=== PATIENT | female | born 1965 | race Caucasian/White ===

== ENCOUNTER 2024-04-13 23:38 | Inpatient (IN) | payer MEDICARE, OTHER ==
[~2024-04-13] VITALS: Ht 162.6 cm; Wt 69.9 kg
[2024-04-14] MEDS ORDERED: ACETAMINOPHEN 650 MG/SUPP.RECT RC ONE (00:18)
[2024-04-14 00:26] LABS: BASOPHILS % (AUTO) 0.1 % (0.0-2.0); EOSINOPHILS # (AUTO) 0.1 K/uL (0.0-0.7); EOSINOPHILS % (AUTO) 0.7 % (0.0-6.0); HEMATOCRIT 24 % (33-45); HEMOGLOBIN 8.1 g/dL (11.5-14.8); LYMPHOCYTES # (AUTO) 1.1 K/uL (0.8-4.8); LYMPHOCYTES % (AUTO) 10.9 % (20.0-44.0); MEAN CORPUSCULAR HEMOGLOBIN 29 PG (26.0-33.0); MEAN CORPUSCULAR HGB CONC 33 g/dl (31.0-36.0); MEAN CORPUSCULAR VOLUME 87 fL (82-100); MONOCYTES # (AUTO) 0.7 K/uL (0.1-1.30); MONOCYTES % (AUTO) 6.8 % (2.0-12.0); NEUTROPHILS # (AUTO) 8.2 K/uL (1.8-8.9); NEUTROPHILS % (AUTO) 81.5 % (43.0-81.0); PLATELET COUNT (AUTO) 158 K/uL (150-450); RED CELL DISTRIBUTION WIDTH 14.3 % (11.5-15.0); WHITE BLOOD COUNT (AUTO) 10.1 K/uL (4.3-11.0)
[2024-04-14] MEDS: PIPERACILLIN /TAZOBACTAM 3.375 G in IV D5W 50 ML IV ONE (00:30)
[2024-04-14] MEDS ORDERED: PIPERACI/TAZO 3.375GM/D5W 50ML PB IV ONE (00:34)
[2024-04-14] MEDS ORDERED: VANCOMYCIN 1 GM /D5W 250 ML PB IV ONE (00:34)
[2024-04-14] MEDS: IV NS 0.9% 1,000 ML BAG IV ONE (00:45)
[2024-04-14] MEDS: ACETAMINOPHEN 650 MG/SUPP.RECT RC ONE (00:45)
[2024-04-14 00:49] LABS: LACTIC ACID 1.9 mmol/L (0.4-2.0)
[2024-04-14 00:50] LABS: INR 1.07 (0.91-1.10); PARTIAL THROMBOPLASTIN TIME 27.4 SEC (24.3-34.3); PROTHROMBIN TIME 11.3 SECS (9.2-11.1)
[2024-04-14 00:52] LABS: CALCIUM, SERUM 7.6 mg/dL (8.5-10.1); CREATININE 1.4 mg/dL (0.6-1.3); POTASSIUM 4.5 mmol/L (3.5-5.1)
[2024-04-14 00:58] LABS: ADD URINE CULTURE YES; APPEARANCE,URINE CLOUDY (CLEAR); BACTERIA,URINE Moderate /HPF (None Seen); BILIRUBIN,URINE NEGATIVE (NEGATIVE); BLOOD, URINE TRACE-INTA Ery/uL (NEGATIVE); COLOR,URINE YELLOW (YELLOW); KETONES,URINE NEGATIVE (NEGATIVE); LEUKOCYTE ESTERASE ,URINE 1+ (NEGATIVE); NITRITE, URINE NEGATIVE (NEGATIVE); PH,URINE 5.5 (5.0-8.0); PROTEIN,URINE NEGATIVE (NEGATIVE); UGLUCOSE NEGATIVE (NEGATIVE); UROBILINOGEN,URINE 0.2 EU/dL (0.2); WBC,URINE 21-50 /HPF (0-3)
[2024-04-14 00:58] LABS: BILIRUBIN,DIRECT 0.2 mg/dL (0.0-0.2); BILIRUBIN,TOTAL 0.4 mg/dL (0.2-1.0); TOTAL PROTEIN, SERUM 6.1 g/dL (6.4-8.2)
[2024-04-14 00:59] LABS: SQUAMOUS EPITHELIAL CELL,UR Few /HPF (None Seen)
[2024-04-14] MEDS: VANCOMYCIN 1 GM in IV D5W 250 ML IV ONE (01:18)
[2024-04-14] MEDS ORDERED: HYDROMORPHONE 1 MG/1 ML DISP.SYRIN ONE (01:28)
[2024-04-14] MEDS ORDERED: KETOROLAC TROMETHAMINE INJ 30 MG/ML VIAL ONE (01:28)
[2024-04-14] MEDS: HYDROMORPHONE 1 MG/1 ML DISP.SYRIN IV ONE (01:30)
[2024-04-14] MEDS: KETOROLAC TROMETHAMINE INJ 30 MG/ML VIAL IV ONE (01:32)
[2024-04-14] MEDS ORDERED: ALBUTEROL FS 2.5 MG/0.5 ML VIAL.NEB NEB PRN (02:00)
[2024-04-14] MEDS ORDERED: hydrALAZINE HCL IV 20 MG VIAL IV PRN (02:00)
[2024-04-14] MEDS ORDERED: ONDANSETRON HCL/PF 4 MG/2 ML VIAL IVP PRN (02:00)
[2024-04-14] MEDS ORDERED: MORPHINE SULFATE INJ 2 MG/ML DISP.SYRIN IV PRN (02:00)
[2024-04-14] MEDS: IV NS 0.9% 1,000 ML IV SCH (03:00)
[2024-04-14] MEDS: ALBUTEROL FS 2.5 MG/0.5 ML VIAL.NEB IH SCH (07:35)
[2024-04-14] MEDS ORDERED: CEFEPIME 2 GM in IV D5W 100 ML IV SCH (08:00)
[2024-04-14] MEDS ORDERED: MULT-213 PO (08:59)
[2024-04-14] MEDS ORDERED: GABA300C PO (08:59)
[2024-04-14] MEDS ORDERED: RISP1TAB97 PO (08:59)
[2024-04-14] MEDS ORDERED: BUSP5TAB3 PO (08:59)
[2024-04-14] MEDS: HEPARIN SODIUM, PORCINE 5000 UNITS/1 ML VIAL SQ SCH (09:00)
[2024-04-14] MEDS: VANCOMYCIN 500 MG in IV D5W 100 ML IV ONE ×2 (09:00→15:13)
[2024-04-14] MEDS: LORAZEPAM INJ 2 MG/ML VIAL IM ONE (10:18)
[2024-04-14] MEDS ORDERED: LORAZEPAM INJ 2 MG/ML VIAL ONE (10:19)
[2024-04-14] MEDS: CEFEPIME 2 GM in IV D5W 100 ML IV SCH ×2 (11:00→17:30)
[2024-04-14] MEDS ORDERED: LORAZEPAM 1 MG TABLET PO PRN (15:00)
[2024-04-14] MEDS: LORAZEPAM 1 MG TABLET PO PRN (15:14)
[2024-04-14 20:00] VITALS: BP 139/94; TEMP 98.2; O2SAT 96
[2024-04-14] MEDS: TRAZODONE 50 MG TABLET PO SCH (23:21)
[2024-04-15 04:00] VITALS: BP 128/68; TEMP 98.2; O2SAT 100
[2024-04-15 08:51] VITALS: BP 103/91; TEMP 98.2; O2SAT 100
[2024-04-15] MEDS ORDERED: VANCOMYCIN 750 MG in IV D5W 250 ML IV SCH (09:00)
[2024-04-15] MEDS: ACETAMINOPHEN 325 MG TABLET PO PRN (09:51)
[2024-04-15] MEDS ORDERED: IV NS 0.9% 1,000 ML IV PRN (11:20)
[2024-04-15 12:12] VITALS: BP 111/75; TEMP 97.7; O2SAT 100
[2024-04-15] MEDS: risperiDONE 1 MG TABLET PO SCH (12:45)
[2024-04-15] MEDS: VANCOMYCIN 750 MG in IV D5W 250 ML IV SCH (15:00)
[2024-04-15 15:27] LABS: CALCIUM, SERUM 7.5 mg/dL (8.5-10.1); CREATININE 1.3 mg/dL (0.6-1.3); POTASSIUM 4.7 mmol/L (3.5-5.1)
[2024-04-15] MEDS: GABAPENTIN 100 MG CAPSULE PO SCH (15:38)
[2024-04-15 16:05] VITALS: BP 118/77; TEMP 98.1; O2SAT 100
[2024-04-15 17:55] LABS: BASOPHILS % (AUTO) 0.1 % (0.0-2.0); EOSINOPHILS # (AUTO) 0.1 K/uL (0.0-0.7); EOSINOPHILS % (AUTO) 1.1 % (0.0-6.0); HEMATOCRIT 29 % (33-45); HEMOGLOBIN 9.3 g/dL (11.5-14.8); LYMPHOCYTES # (AUTO) 1.1 K/uL (0.8-4.8); LYMPHOCYTES % (AUTO) 20.7 % (20.0-44.0); MEAN CORPUSCULAR HEMOGLOBIN 29 PG (26.0-33.0); MEAN CORPUSCULAR HGB CONC 32 g/dl (31.0-36.0); MEAN CORPUSCULAR VOLUME 91 fL (82-100); MONOCYTES # (AUTO) 0.5 K/uL (0.1-1.30); MONOCYTES % (AUTO) 9.1 % (2.0-12.0); NEUTROPHILS # (AUTO) 3.8 K/uL (1.8-8.9); PLATELET COUNT (AUTO) 97 K/uL (150-450); RED CELL DISTRIBUTION WIDTH 15.6 % (11.5-15.0); WHITE BLOOD COUNT (AUTO) 5.5 K/uL (4.3-11.0)
[2024-04-15] MEDS ORDERED: VANC750V IV (18:51)
[2024-04-15] MEDS ORDERED: HEPA50008 SQ (18:51)
[2024-04-15] MEDS ORDERED: ALBU2.5V13 NEB ×2 (18:51)
[2024-04-15] MEDS ORDERED: CEPH-570 PO (18:51)
[2024-04-15] MEDS ORDERED: MORP2VIA IV (18:51)
[2024-04-15] MEDS ORDERED: HYDR20VI4 IV (18:51)
[2024-04-15] MEDS ORDERED: TRAZ-182 PO (18:51)
[2024-04-15] MEDS ORDERED: LORA-259 PO (18:51)
[2024-04-15] MEDS ORDERED: NORM10004 IV (18:51)
[2024-04-15] MEDS ORDERED: CEFE2VIA3 IV (18:51)
[2024-04-15] MEDS ORDERED: ONDA2VIA IVP (18:51)
[2024-04-15] MEDS ORDERED: ACET325T53 PO (18:51)
[2024-04-15 20:53] LABS: BILIRUBIN,TOTAL 0.3 mg/dL (0.2-1.0); CALCIUM, SERUM 7.6 mg/dL (8.5-10.1); CREATININE 1.3 mg/dL (0.6-1.3); MAGNESIUM 1.5 mg/dL (1.8-2.4); PHOSPHORUS 2.5 mg/dL (2.5-4.9); POTASSIUM 4.8 mmol/L (3.5-5.1); TOTAL PROTEIN, SERUM 6.6 g/dL (6.4-8.2)
[2024-04-15 21:36] LABS: ANISOCYTOSIS 1+; BASOPHILS % (MANUAL) 0 % (0.0-2.0); EOSINOPHILS % (MANUAL) 0 % (0-4); LYMPHOCYTES % (MANUAL) 20 % (16-48); MONOCYTES % (MANUAL) 7 % (0-11.0); NEUTROPHILS % (MANUAL) 73 (42-76); PLATELET ESTIMATE DECREASED
[2024-04-15] MEDS ORDERED: TRAZODONE 50 MG TABLET PO SCH (22:00)
[2024-04-15] MEDS ORDERED: risperiDONE 1 MG TABLET PO SCH (22:00)
== END 2024-04-15 17:04 | DRG 690 ==
LOC: ER 23:51 → TELE-TD 04-14 12:22 → MEDSG1 04-14 12:33
DX: N39.0 Urinary tract infection, site not specified (principal); K86.1 Other chronic pancreatitis; N17.9 Acute kidney failure, unspecified; R45.851 Suicidal ideations; D57.1 Sickle-cell disease without crisis; F31.9 Bipolar disorder, unspecified; M89.8X9 Other specified disorders of bone, unspecified site; F25.9 Schizoaffective disorder, unspecified; Z79.899 Other long term (current) drug therapy
CPT/HCPCS: 36415; 71045-TC; 80048-TC; 80053-TC; 80076-TC; 81001; 83605-TC; 83735-TC; 84100-TC; 85025-TC; 85730-TC; 87040-TC; 87086-TC; 87186-TC; A4223; G0378; J0692; J1171; J1644; J1885; J2060; J2543; J3370; J3371; J7030; J7060

== ENCOUNTER 2024-04-15 16:20 | Inpatient (IN) | payer MEDICARE, OTHER ==
[~2024-04-15] VITALS: Ht 167.6 cm; Wt 77.1 kg
[~2024-04-15 16:20] MED LIST: BUSP5TAB3 PO; GABA300C PO; MULT-213 PO; RISP1TAB97 PO
[2024-04-15] MEDS ORDERED: VANC750V IV (18:51)
[2024-04-15] MEDS ORDERED: NORM10004 IV (18:51)
[2024-04-15] MEDS ORDERED: CEFE2VIA3 IV (18:51)
[2024-04-15] MEDS ORDERED: HYDR20VI4 IV (18:51)
[2024-04-15] MEDS ORDERED: CEPH-570 PO (18:51)
[2024-04-15] MEDS ORDERED: ACET325T53 PO (18:51)
[2024-04-15] MEDS ORDERED: ALBU2.5V13 NEB ×2 (18:51)
[2024-04-15] MEDS ORDERED: ONDA2VIA IVP (18:51)
[2024-04-15] MEDS ORDERED: LORA-259 PO (18:51)
[2024-04-15] MEDS ORDERED: TRAZ-182 PO (18:51)
[2024-04-15] MEDS ORDERED: MORP2VIA IV (18:51)
[2024-04-15] MEDS ORDERED: HEPA50008 SQ (18:51)
[2024-04-15] MEDS ORDERED: ALBUTEROL FS 2.5 MG/0.5 ML VIAL.NEB NEB PRN (19:00)
[2024-04-15 20:00] VITALS: BP 98/65; TEMP 98.1; O2SAT 100
[2024-04-15] MEDS ORDERED: MAGNESIUM HYDROXIDE 30 ML UDC PO PRN (20:00)
[2024-04-15] MEDS ORDERED: MAG HYDROX/AL HYDROX/SIMETH 30 ML UDC PO PRN (20:00)
[2024-04-15] MEDS: LORAZEPAM 0.5 MG TABLET PO PRN (20:11)
[2024-04-15] MEDS: BLOOD SUGAR DIAGNOSTIC 1 EACH STRIP IN ONE (20:36)
[2024-04-15 22:30] VITALS: BP 110/72; TEMP 98.6; O2SAT 98
[2024-04-15] MEDS: CEPHALEXIN MONOHYDRATE 250 MG CAPSULE PO SCH (22:53)
[2024-04-15] MEDS: TEMAZEPAM 7.5 MG CAPSULE PO PRN (23:55)
[2024-04-16 08:00] VITALS: BP 105/81; TEMP 98.7; O2SAT 97
[2024-04-16] MEDS ORDERED: GABAPENTIN 300 MG CAPSULE PO SCH (09:00)
[2024-04-16] MEDS: GABAPENTIN 300 MG CAPSULE PO SCH (09:11)
[2024-04-16 09:30] VITALS: BP 108/82; TEMP 98.6; O2SAT 97
[2024-04-16] MEDS: LORAZEPAM 0.5 MG TABLET PO PRN (11:04)
[2024-04-16 12:42] LABS: BILIRUBIN,TOTAL 0.3 mg/dL (0.2-1.0); CREATININE 1.1 mg/dL (0.6-1.3); POTASSIUM 4.8 mmol/L (3.5-5.1); TOTAL PROTEIN, SERUM 6.6 g/dL (6.4-8.2)
[2024-04-16 12:44] LABS: CHOLESTEROL 145 mg/dL (<200); HDL CHOLESTEROL 85 mg/dL (40-60); LDL 53 mg/dL (0-99); TRIGLYCERIDES 65 mg/dL (30-150)
[2024-04-16 16:00] VITALS: BP 93/68; TEMP 98.7; O2SAT 98
[2024-04-16] MEDS: risperiDONE 1 MG TABLET PO SCH ×2 (16:29→21:55)
[2024-04-16] MEDS: TEMAZEPAM 7.5 MG CAPSULE PO PRN (23:57)
[2024-04-17 08:12] VITALS: BP 112/76; TEMP 98; O2SAT 94
[2024-04-17] MEDS: THIAMINE HCL 100 MG TABLET PO SCH (09:00)
[2024-04-17 16:08] VITALS: BP 100/71; TEMP 98.1; O2SAT 100
[2024-04-17] MEDS: MENTHOL/CETYLPYRD (CEPACOL) 1 LOZ LOZENGE PO PRN (17:03)
[2024-04-17 20:00] VITALS: BP 115/67; TEMP 97.7; O2SAT 97
[2024-04-18] MEDS: ACETAMINOPHEN 325 MG TABLET PO PRN (01:37)
[2024-04-18 08:00] VITALS: BP 118/67; TEMP 98; O2SAT 97
[2024-04-18 16:00] VITALS: BP 110/72; TEMP 98; O2SAT 98
[2024-04-18] MEDS: ENSURE ENLIVE CHOC 237 ML CAN PO SCH (16:47)
[2024-04-18 20:00] VITALS: BP 121/79; TEMP 98.1; O2SAT 98
[2024-04-18] MEDS ORDERED: TRAZODONE 50 MG TABLET PO SCH (21:00)
[2024-04-18] MEDS: risperiDONE 1 MG TABLET PO SCH (21:44)
[2024-04-18] MEDS ORDERED: TEMAZEPAM 7.5 MG CAPSULE PO PRN (22:30)
[2024-04-19] MEDS: LORAZEPAM 1 MG TABLET PO PRN (05:53)
[2024-04-19 08:00] VITALS: BP 102/72; TEMP 97.5; O2SAT 100
[2024-04-19 16:00] VITALS: BP 129/81; TEMP 98.6; O2SAT 96
[2024-04-19] MEDS ORDERED: PERMETHRIN 59 ML BOTTLE TP ONE (20:30)
[2024-04-19] MEDS: PERMETHRIN 59 ML BOTTLE TP ONE (20:38)
[2024-04-19] MEDS: TRAZODONE 50 MG TABLET PO SCH (21:56)
[2024-04-20 08:00] VITALS: BP 124/86; TEMP 97.7; O2SAT 100
[2024-04-20 16:00] VITALS: BP 122/78; TEMP 97.9; O2SAT 98
[2024-04-20 20:45] VITALS: BP 140/90; TEMP 98; O2SAT 98
[2024-04-21 08:03] VITALS: BP 134/98; TEMP 97.8; O2SAT 98
[2024-04-21] MEDS: risperiDONE 1 MG TABLET PO SCH (08:39)
[2024-04-21 16:14] VITALS: BP 116/82; TEMP 98.2; O2SAT 97
[2024-04-21 20:23] VITALS: BP 117/81; TEMP 98.4; O2SAT 100
[2024-04-21] MEDS: TRAZODONE 50 MG TABLET PO SCH (21:07)
[2024-04-22 08:00] VITALS: BP 130/90; TEMP 97.7; O2SAT 98
[2024-04-22] MEDS: risperiDONE 1 MG TABLET PO SCH (08:14)
[2024-04-22 16:02] VITALS: BP 121/80; TEMP 98.7; O2SAT 100
[2024-04-22 18:22] LABS: BASOPHILS # (AUTO) 0.1 K/uL (0.0-0.2); BASOPHILS % (AUTO) 0.8 % (0.0-2.0); EOSINOPHILS # (AUTO) 0.1 K/uL (0.0-0.7); EOSINOPHILS % (AUTO) 0.8 % (0.0-6.0); HEMATOCRIT 23 % (33-45); HEMOGLOBIN 7.8 g/dL (11.5-14.8); LYMPHOCYTES # (AUTO) 1.4 K/uL (0.8-4.8); LYMPHOCYTES % (AUTO) 18.4 % (20.0-44.0); MEAN CORPUSCULAR HEMOGLOBIN 29 PG (26.0-33.0); MEAN CORPUSCULAR HGB CONC 34 g/dl (31.0-36.0); MEAN CORPUSCULAR VOLUME 87 fL (82-100); MONOCYTES # (AUTO) 0.6 K/uL (0.1-1.30); MONOCYTES % (AUTO) 7.8 % (2.0-12.0); NEUTROPHILS # (AUTO) 5.6 K/uL (1.8-8.9); NEUTROPHILS % (AUTO) 72.2 % (43.0-81.0); PLATELET COUNT (AUTO) 423 K/uL (150-450); RED BLOOD CELL COUNT(AUTO) 2.67 MIL/uL (4.0-5.2); RED CELL DISTRIBUTION WIDTH 16.3 % (11.5-15.0); WHITE BLOOD COUNT (AUTO) 7.7 K/uL (4.3-11.0)
[2024-04-22 18:37] LABS: ALBUMIN 2.3 g/dL (3.4-5.0); BILIRUBIN,TOTAL 0.2 mg/dL (0.2-1.0); CALCIUM, SERUM 8.2 mg/dL (8.5-10.1); CREATININE 1.1 mg/dL (0.6-1.3); POTASSIUM 4.5 mmol/L (3.5-5.1); TOTAL PROTEIN, SERUM 6.8 g/dL (6.4-8.2)
[2024-04-22] MEDS: TRAZODONE 50 MG TABLET PO SCH (21:12)
[2024-04-22 21:30] VITALS: BP 102/61; TEMP 98.2; O2SAT 100
[2024-04-23 08:00] VITALS: BP 125/84; TEMP 97.8; O2SAT 97
[2024-04-23] MEDS: TRAMADOL HCL 50 MG TABLET PO SCH (14:21)
[2024-04-23] MEDS: FUROSEMIDE 20 MG TABLET PO ONE (14:21)
[2024-04-23 16:09] VITALS: BP 110/85; TEMP 98.3; O2SAT 97
[2024-04-23 20:39] VITALS: BP 133/102; TEMP 98; O2SAT 97
[2024-04-24 08:00] VITALS: BP 104/78; TEMP 98.8; O2SAT 100
[2024-04-24] MEDS: FUROSEMIDE 20 MG TABLET PO ONE (11:28)
[2024-04-24 16:00] VITALS: BP 100/63; TEMP 98.2; O2SAT 100
[2024-04-24 18:52] LABS: BASOPHILS # (AUTO) 0.1 K/uL (0.0-0.2); BASOPHILS % (AUTO) 1.1 % (0.0-2.0); EOSINOPHILS # (AUTO) 0.1 K/uL (0.0-0.7); EOSINOPHILS % (AUTO) 1.4 % (0.0-6.0); HEMATOCRIT 23 % (33-45); HEMOGLOBIN 7.7 g/dL (11.5-14.8); LYMPHOCYTES # (AUTO) 1.7 K/uL (0.8-4.8); LYMPHOCYTES % (AUTO) 19.8 % (20.0-44.0); MEAN CORPUSCULAR HEMOGLOBIN 29 PG (26.0-33.0); MEAN CORPUSCULAR HGB CONC 33 g/dl (31.0-36.0); MEAN CORPUSCULAR VOLUME 86 fL (82-100); MONOCYTES # (AUTO) 0.9 K/uL (0.1-1.30); NEUTROPHILS # (AUTO) 5.8 K/uL (1.8-8.9); NEUTROPHILS % (AUTO) 67.7 % (43.0-81.0); PLATELET COUNT (AUTO) 509 K/uL (150-450); RED CELL DISTRIBUTION WIDTH 16.1 % (11.5-15.0); WHITE BLOOD COUNT (AUTO) 8.6 K/uL (4.3-11.0)
[2024-04-24 18:58] LABS: CALCIUM, SERUM 8.5 mg/dL (8.5-10.1); CREATININE 1.1 mg/dL (0.6-1.3); POTASSIUM 5.1 mmol/L (3.5-5.1)
[2024-04-24 19:04] LABS: ALBUMIN 2.4 g/dL (3.4-5.0); BILIRUBIN,TOTAL 0.2 mg/dL (0.2-1.0)
[2024-04-24] MEDS: BENZTROPINE MESYLATE (2MG/2ML) 2 MG/2 ML AMPUL IM ONE (20:38)
[2024-04-24 20:46] LABS: AMPHETAMINE, URINE NEGATIVE (NEGATIVE); BENZODIAZEPINE, URINE NEGATIVE (NEGATIVE); CANNABINOID, URINE NEGATIVE (NEGATIVE); COCCAINE, URINE NEGATIVE (NEGATIVE); OPIATE, URINE NEGATIVE (NEGATIVE); PHENCYCLIDINE SCREEN,URINE NEGATIVE (NEGATIVE)
[2024-04-24 20:51] LABS: BARBITURATE, URINE POSITIVE (NEGATIVE)
[2024-04-24 21:16] VITALS: BP 115/64; TEMP 98.5; O2SAT 100
[2024-04-24] MEDS: BENZTROPINE MESYLATE (1 MG) 1 MG TABLET PO SCH (21:59)
[2024-04-25 08:00] VITALS: BP 117/80; TEMP 97.9; O2SAT 97
[2024-04-25] MEDS: BENZTROPINE MESYLATE (1 MG) 1 MG TABLET PO SCH (08:48)
[2024-04-25] MEDS: risperiDONE 1 MG TABLET PO SCH (08:48)
[2024-04-25] MEDS: HYDROCODONE/APAP 5/325MG TABLET PO PRN (10:53)
[2024-04-25 16:00] VITALS: BP 128/84; TEMP 98; O2SAT 100
[2024-04-25 16:18] LABS: THYROID STIMULATING HORMONE 2.84 uIU/mL (0.358-3.74)
[2024-04-25 20:42] VITALS: BP 132/84; TEMP 98.6; O2SAT 100
[2024-04-26 08:00] VITALS: BP 104/60; TEMP 97.7; O2SAT 98
[2024-04-26] MEDS: FOLIC ACID 1 MG TABLET PO SCH (08:42)
[2024-04-27 05:11] LABS: FOLIC ACID 19.9 ng/mL (>3.0); IMMUNOGLOBULIN A, SERUM 239 mg/dL (87-352); IMMUNOGLOBULIN G, SERUM 1353 mg/dL (586-1602); IMMUNOGLOBULIN M, SERUM 43 mg/dL (26-217)
[2024-04-27 06:07] LABS: FREE KAPPA LT CHAINS SERUM 43.8 mg/L (3.3-19.4); FREE LAMBDA LT CHAIN SERUM 38.5 mg/L (5.7-26.3); KAPPA/LAMBDA RATIO SERUM 1.14 (0.26-1.65)
== END 2024-04-26 14:00 | DRG 885 ==
LOC: GPS 16:20
PROVIDERS: ADMIT Psychiatry & Neurology Psychosomatic Medicine
DX: F31.64 Bipolar disorder, current episode mixed, severe, with psychotic features (principal); N17.9 Acute kidney failure, unspecified; N39.0 Urinary tract infection, site not specified; Z59.00 Homelessness unspecified; E44.0 Moderate protein-calorie malnutrition; R45.851 Suicidal ideations; F29 Unspecified psychosis not due to a substance or known physiological condition; D57.1 Sickle-cell disease without crisis; F14.90 Cocaine use, unspecified, uncomplicated; F10.90 Alcohol use, unspecified, uncomplicated; Y90.9 Presence of alcohol in blood, level not specified; Z73.6 Limitation of activities due to disability; M89.8X9 Other specified disorders of bone, unspecified site; F39 Unspecified mood [affective] disorder; B96.89 Other specified bacterial agents as the cause of diseases classified elsewhere; E83.51 Hypocalcemia; E88.09 Other disorders of plasma-protein metabolism, not elsewhere classified; Z87.19 Personal history of other diseases of the digestive system; I10 Essential (primary) hypertension; D75.839 Thrombocytosis, unspecified
CPT/HCPCS: 36415; 70450-TC; 80048-TC; 80053-TC; 80061-TC; 82607-TC; 82728-TC; 82784; 82962-TC; 83540-TC; 84155; 84165; 84443-TC; 85025-TC; 85045-TC; 86334; 93970-TC; 97110-TC; 97116-TC; 97530-TC; J0515